=== PATIENT | male | born 2000 | race Caucasian/White ===

== ENCOUNTER 2022-05-11 12:24 | Emergency (ER) | payer MEDICAID ==
[~2022-05-11] VITALS: Ht 172.7 cm; Wt 91.0 kg
[2022-05-11 12:34] VITALS: BP 141/72
== END 2022-05-11 15:56 | disposition home or self-care (01) ==
LOC: ER 12:24
DX: H68.103 Unspecified obstruction of Eustachian tube, bilateral (principal)
CPT/HCPCS: 99282